=== PATIENT | female | born 1975 | race Caucasian/White ===

== ENCOUNTER → 2021-11-09 09:37 | Outpatient (BNVA) | payer OTHER, SELFPAY | PROVIDERS: Visit Provider Physician Assistant Medical | DX: S00.93XA Contusion of unspecified part of head, initial encounter (principal); S30.0XXA Contusion of lower back and pelvis, initial encounter; S20.229A Contusion of unspecified back wall of thorax, initial encounter; S60.211A Contusion of right wrist, initial encounter; S43.401A Unspecified sprain of right shoulder joint, initial encounter; W00.0XXA Fall on same level due to ice and snow, initial encounter | CPT/HCPCS: 99203 ==

== ENCOUNTER → 2021-11-12 08:18 | Outpatient (BNVA) | payer OTHER, SELFPAY | PROVIDERS: Visit Provider Physician Assistant Medical | DX: S00.93XA Contusion of unspecified part of head, initial encounter (principal); S30.0XXA Contusion of lower back and pelvis, initial encounter; S60.211A Contusion of right wrist, initial encounter; S43.402A Unspecified sprain of left shoulder joint, initial encounter; X58.XXXA Exposure to other specified factors, initial encounter | CPT/HCPCS: 99213 ==